=== PATIENT | female | born 1955 | race Caucasian/White ===

== ENCOUNTER 2016-06-15 18:47 | Inpatient (IN) | payer SELFPAY ==
[~2016-06-15] VITALS: Ht 177.8 cm; Wt 76.9 kg
--- NOTE | ~2016-06-15 | CON ---
PATIENT'S NAME: JOSE DANIEL DHALIWAL [facility] AGE: 60 Y [address] ROOM: [address] [address] LOCATION: [facility] ADMIT DATE: 06/15/2016 Consultation DISCHARGE DATE: FAMILY PHYSICIAN: PHYSICIAN, NO ATTENDING PHYSICIAN: ALAYNA HERNANDEZ DATE OF CONSULTATION: 06/16/2016 REFERRING PHYSICIAN: Pedro Willams MD CHIEF COMPLAINT: Left facial abscess, infected mandibular plate. HISTORY OF PRESENT ILLNESS: The patient is a 60-year-old female who presented to [facility] Emergency Room on 06/12/2016 with pain and swelling of left face. The patient had a history of mandible fracture for which she underwent open reduction and internal fixation per Dr. Shyam Salas several years prior. Apparently, right mandibular plates have been removed. Left mandibular plate remains. Upon evaluation, the patient was noted to have induration and swelling of her left mandible with an exposed mandibular reconstruction plate intraorally on the left. She was placed on oral Cleocin and Augmentin and instructed to follow up with ENT on Sunday06/13/2016. The patient failed to keep followup appointment and states she has been compliant with her antibiotic use. She presented to the emergency room on the late evening of 06/15/2016 with progressive enlargement of left-sided facial abscess with intraoral as well as external drainage. She was admitted to [facility] under hospitalist program. CBC was performed which revealed a normal white count at 7.6. The patient was admitted to [facility], placed on IV Unasyn, and ENT consultation was obtained. The patient states she has had progressive trismus noticed drainage over the course of the past 24 hours externally. She has significant pain and discomfort. She has no dysphagia. No odynophagia. No shortness of breath. No cough. She has had no recent radiographic evaluations. She has had no recent dental care. PAST MEDICAL HISTORY: History of alcohol and tobacco abuse. ALLERGIES: NONE. MEDICATIONS: See attached medication list. SOCIAL HISTORY: The patient is a 60-year-old female with history of smoking as well as alcohol use. She is . lives out of town. PATIENT'S NAME: JOSE DANIEL DHALIWAL [facility] AGE: 60 Y [address] ROOM: [id number] [place], [place] [address] LOCATION: [facility] ADMIT DATE: 06/15/2016 Consultation DISCHARGE DATE: FAMILY PHYSICIAN: EMELYN RECIO ATTENDING PHYSICIAN: ALAYNA HERNANDEZ A REVIEW OF SYSTEMS: Noted and documented in the chart. PHYSICAL EXAMINATION: GENERAL: She is a well-developed, well-nourished, 60-year-old female; very cooperative with exam; in moderate distress. HEENT: Eyes: EOMI, PERRL. Conjunctivae are clear. Ears: External canals normal. TMs are clear respectively. Nose: Nasal mucosa is nonedematous, nonerythematous. There is no rhinorrhea. Oropharynx and Oral Cavity: Tongue is midline. The patient has very poor dentition with multiple dental caries. She has swelling of her buccogingival sulcus on the left. She has an exposed plate extending up along the ramus of her mandible posteriorly on the left. There is no gross purulence. It is tender to palpation. Trismus for evaluation of the lingual aspect of her mandible, it is not well visualized. NECK: Trachea is midline. Thyroid has no palpable abnormality. She has no palpable cervical lymphadenopathy. FACE: The patient has a large left-sided facial abscess along the body of her mandible on the left. It is tender to palpation. There is fluctuance, associated erythema, and crusting with tissue breakdown. It is extremely tender to palpation. ASSESSMENT: 1. Left facial abscess. 2. Infected left mandibular reconstruction plate with possible osteomyelitis. RECOMMENDATIONS: Recommend CT scan of the face, Panorex, to evaluate position of plates and screws. Discussed this with the hospitalist ENT on-call in regard to the patient likely needs to be taken to the operating room for I and D and removal of all hardware. MD FERN MCKEON/eduardo /[id number] d: 06/16/16 1159 t: 06/19/16 0738, CONSULTATION REPORT
--- NOTE | ~2016-06-15 | CON ---
PATIENT'S NAME: JOSE DANIEL DHALIWAL [facility] AGE: 60 Y [address] ROOM: [facility] [place], [place] [address] LOCATION: GPED ADMIT DATE: 06/15/2016 Consultation DISCHARGE DATE: 06/19/2016 FAMILY PHYSICIAN: PHYSICIAN, NO ATTENDING PHYSICIAN: Cristo Owen REFERRING PHYSICIAN: Pedro Willams MD This is a young lady, who I treated 5 years ago for a fracture of the edentulous left mandible. Apparently, she came in last week with infection of the left side and the plates have bone removed. Panorex x-ray shows nonrestorable anterior mandibular teeth, otherwise is unremarkable. On clinical exam, she has defect of the left buccal musculature and skin secondary to her abscess. This has been packed open. ASSESSMENT: As above. PLAN: In talking to the patient, she states the teeth is completely asymptomatic and there is no evidence of acute infection clinically of these teeth. I think the present course of treatment is perfectly appropriate. I will speak further to the ENT physician handling her care. NICOLE NORIEGA MD/RAMÍREZ CARMONA/eduardo /[id number] d: t: 06/20/16 0920, CONSULTATION REPORT
--- NOTE | ~2016-06-15 | DS ---
PATIENT'S NAME: JOSE DANIEL DHALIWAL [facility] AGE: 60 Y [address] ROOM: [address] [place], [place] [address] LOCATION: GPED ADMIT DATE: 06/15/2016 Discharge Summary DISCHARGE DATE: 06/19/2016 FAMILY PHYSICIAN: PHYSICIAN, NO ATTENDING PHYSICIAN: Cristo Owen ATTENDING PHYSICIAN: Jaime Garcia M.D. PRIMARY CARE PHYSICIAN: None. FINAL DIAGNOSES: 1. Left facial abscess. 2. Infected left mandibular plate, status post removal. 3. Pain secondary to left facial abscess and infected left mandibular plate, status post removal. 4. History of alcohol abuse. CONSULTATIONS: 1. ENT, Dr. Borges. 2. Dr. Salas. PROCEDURES: I and D of left facial abscess with removal of plate. REASON FOR ADMISSION: This is a 60-year-old female who presented with left jaw pain. The patient presented with swelling and left jaw pain. She was found to have left facial abscess. She was then further admitted to [facility]. Please see Dr. Owen's admission H and P for further details. DIAGNOSTIC STUDIES: Serial CBCs were done that showed essentially normal white count, hemoglobin, hematocrit, and platelet levels. Serial BMP showed normal electrolytes and kidney function tests. Magnesium level 2.2. ESR 61. PT/INR was normal. CRP 4.91. Maxillofacial CT was done for facial abscess and showed a suspected large abscess adjacent to the lateral aspect of the angle of the mandible on the left side. This abutted the cortex in the posterior aspect of the surgical plate. Bony involvement could not be completely excluded, although no evidence of lytic lesion was noted. The patient was largely edentulous with lower incisors remaining. Increased lucency and positioning of the individual incisors noted. Crowns appeared to be eroded. Suspected reactive adenopathy involving the carotid chains and posterior triangles, worse on the left side was noted. Panorex x-ray was done for facial pain and showed surgical plate present involving the left anterior mandible. Surgical plate was intact. No acute fracture or dislocation noted. No bony lytic lesions were noted. The patient was largely edentulous. Crowns appeared to be eroded. X-ray of the mandible was done subsequently after drainage and showed surgical plate involving the left anterior mandible to be removed. No residual surgical hardware identified. Blood culture was PATIENT'S NAME: JOSE DANIEL DHALIWAL [facility] AGE: 60 Y [address] ROOM: [address] [place], [place] [address] LOCATION: GPED ADMIT DATE: 06/15/2016 Discharge Summary DISCHARGE DATE: 06/19/2016 FAMILY PHYSICIAN: PHYSICIAN, NO ATTENDING PHYSICIAN: Cristo Owen negative. Gram stain of the wound culture showed Streptococcus constellatus, pansensitive to all antibiotics tested; also showed Peptostreptococcus species, sensitive to antibiotics tested. HOSPITAL COURSE: This is a 60-year-old female who presented with left facial pain and facial swelling. She was found to have a left jaw abscess. She was initially placed on broad-spectrum antibiotic including Unasyn. ENT was consulted. The patient underwent imaging studies. The patient underwent an I and D of the left mandibular abscess along with removal of her plate. Postop course was uncomplicated. Her swelling had gone down. She was able to tolerate p.o. We also obtained maxillofacial CT surgeon, Dr. Salas's consultation, no further recommendations were received. The patient continued to do well, and then she was discharged and asked to follow up with Dr. Borges. DISCHARGE INSTRUCTIONS: The patient discharged on a full liquid diet. Followup with Dr. Borges in 1 week's time. Twice daily dressing changes advised. ENT to check a CBC, fax to Dr. Borges's office. The patient will get labs drawn at [facility]. DISCHARGE MEDICATIONS: 1. Peridex 15 mL p.o. 3 times daily, swish and spit. 2. Clindamycin 300 mg 4 times daily for 21 days. 3. Florastor 250 mg p.o. b.i.d. while on antibiotics. 4. [place] 10/325 mg 1 tablet p.o. q.4 hours p.r.n. pain. 5. Colace 100 mg p.o. b.i.d. p.r.n. constipation. This patient was managed by hospitalist and ENT teams during this admission. JAIME GARCIA MD MT/eduardo /[id number] d: 06/26/16 0551 t: 06/28/16 1512, DISCHARGE SUMMARY
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
--- NOTE | ~2016-06-15 | OR ---
PATIENT'S NAME: LATOSHA DOMINGUEZ [facility] AGE: 60 Y [address] ROOM: [facility] [place], [place] [address] LOCATION: GPED ADMIT DATE: 06/15/2016 OR/Procedure Report DISCHARGE DATE: FAMILY PHYSICIAN: PHYSICIAN, NO ATTENDING PHYSICIAN: ALAYNA HERNANDEZ SURGEON: Santiago Borges MD DATA ENTRY: DATE OF PROCEDURE: 06/16/2016 PREOPERATIVE DIAGNOSIS: Infected left mandible plates with left facial/neck abscess. HISTORY: Latosha Dominguez is a 60-year-old female, who underwent open reduction and internal fixation of mandible fracture with Dr. Salas many years ago. We did review the operative note and description of the plate and screws that were used at that time. The patient has had a 1-week history of increasing left facial and neck swelling and pain to suggest infection of the plate itself. She has very poor dentition otherwise. Dr. Salas was not available, therefore, Dr. Willams admitted her last night to [facility]. Dr. Willams left [facility], therefore, I accepted care for this patient. The CT scan was performed, which demonstrated the above. I did discuss with the patient the operative indications, potential risks and complications, and options, and she wished to proceed with surgery. DESCRIPTION OF PROCEDURE: The patient was brought to the operating room and placed in the supine position under general anesthesia without incident. The patient's eyes were protected during the operative course. Anesthesia was able to intubate her with a glide scope as she had fair amount of trismus. After the patient was intubated and the airway was secured, the left face was prepped and draped in normal sterile fashion. Area of the left facial abscess was starting to drain. This area was opened widely and a small incision was made anteriorly to expose the remainder of the abscess formation. This wound was copiously irrigated with sterile saline solution and cultures were taken from this side as well. Through an intraoral approach, an exposed plate was identified with one screw in place. This screw was removed and that plate and screw were sent on the back table. The patient was also noted to have another plate, 6-hole plate, deep with 6 screws, that were removed from the floor of the mouth on the left side as well. This area was copiously irrigated with sterile saline solution. I did tack the mucosa together, but allowing drainage from this site. [place] drain was placed in the neck and the wound was lightly closed over the Rian. The patient will remain on IV antibiotics. The patient's blood loss was 100 mL. She was extubated and taken to the recovery room in stable condition. PATIENT'S NAME: LATOSHA DOMINGUEZ [facility] AGE: 60 Y [address] ROOM: [place] [address] LOCATION: GPED ADMIT DATE: 06/15/2016 OR/Procedure Report DISCHARGE DATE: FAMILY PHYSICIAN: PHYSICIAN, EMELYN ATTENDING PHYSICIAN: ALAYNA HERNANDEZ MD DGO/modl /[id number] CC: Shyam Salas MD/DDS d: 06/17/16 0002 t: 06/21/16 1251, OPERATIVE SUMMARY
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
[2016-06-15 20:15] LABS: BASOPHIL % 0.5 %; EOSINOPHIL # 0.4 K/uL (0.0-0.5); EOSINOPHIL % 5.1 %; HEMATOCRIT 38.7 % (33.0-46.0); HEMOGLOBIN 12.9 g/dL (10.0-15.0); IMMATURE GRANULOCYTE % 0.1 %; LYMPHOCYTE # 1.6 K/uL (0.8-4.0); LYMPHOCYTE % 21.3 %; MCHC 33.3 gm/dL (32.0-36.5); MONOCYTE # 0.4 K/uL (0.0-1.0); MONOCYTE % 4.9 %; MPV 9.6 fl (9.4-12.4); NEUTROPHIL # (ANC) 5.2 K/uL (1.8-7.8); NEUTROPHIL % 68.1 %; NRBC % 0 /100WBC (0-0.00); PLATELET COUNT 277 K/uL (150-450); RBC 3.91 M/uL (3.50-5.50); RDW-CV 11.9 % (11.9-14.6); WBC 7.6 K/uL (4.0-11.0)
[2016-06-15] MEDS ORDERED: CLEOCIN150 MG PO (22:33)
[2016-06-15] MEDS ORDERED: HYDROCODON-ACE1 EAC4 PO (22:34)
[2016-06-15] MEDS ORDERED: AUGMENTIN 875-1 EACH PO (22:36)
[2016-06-15 22:59] LABS: ANION GAP 15.6 (10.0-19.0); BLOOD UREA NITROGEN 5 mg/dL (6-24); CALCIUM 8.6 mg/dL (8.5-10.5); CHLORIDE 103 mMol/L (96-110); CO2 24 mMol/L (22-32); CREATININE 0.6 mg/dL (0.5-1.1); ESTIMATED GFR (MDRD EQUATION) > 60; POTASSIUM 3.6 mMol/L (3.7-5.1); SODIUM 139 mMol/L (135-145)
[2016-06-16 05:33] LABS: BASOPHIL % 0.4 %; EOSINOPHIL # 0.2 K/uL (0.0-0.5); EOSINOPHIL % 2.9 %; HEMATOCRIT 35.9 % (33.0-46.0); HEMOGLOBIN 11.8 g/dL (10.0-15.0); IMMATURE GRANULOCYTE % 0.4 %; LYMPHOCYTE # 1.5 K/uL (0.8-4.0); LYMPHOCYTE % 18.8 %; MCH 32.8 pg (27.0-34.0); MCHC 32.9 gm/dL (32.0-36.5); MCV 99.7 fl (83.0-98.0); MONOCYTE # 0.6 K/uL (0.0-1.0); MONOCYTE % 6.9 %; MPV 9.6 fl (9.4-12.4); NEUTROPHIL # (ANC) 5.8 K/uL (1.8-7.8); NEUTROPHIL % 70.6 %; NRBC % 0 /100WBC (0-0.00); PLATELET COUNT 238 K/uL (150-450); RDW-CV 11.9 % (11.9-14.6); WBC 8.2 K/uL (4.0-11.0)
[2016-06-16 05:47] LABS: BLOOD UREA NITROGEN 6 mg/dL (6-24); CALCIUM 8.1 mg/dL (8.5-10.5); CHLORIDE 104 mMol/L (96-110); CO2 27 mMol/L (22-32); CREATININE 0.6 mg/dL (0.5-1.1); ESTIMATED GFR (MDRD EQUATION) > 60; SODIUM 140 mMol/L (135-145)
[2016-06-17 05:48] LABS: BASOPHIL % 0.3 %; EOSINOPHIL % 0.1 %; HEMATOCRIT 36.6 % (33.0-46.0); HEMOGLOBIN 11.9 g/dL (10.0-15.0); IMMATURE GRANULOCYTE % 0.3 %; LYMPHOCYTE # 1.1 K/uL (0.8-4.0); LYMPHOCYTE % 15.8 %; MCHC 32.5 gm/dL (32.0-36.5); MCV 101.4 fl (83.0-98.0); MONOCYTE # 0.2 K/uL (0.0-1.0); MONOCYTE % 3.1 %; MPV 9.8 fl (9.4-12.4); NEUTROPHIL # (ANC) 5.7 K/uL (1.8-7.8); NEUTROPHIL % 80.4 %; NRBC % 0 /100WBC (0-0.00); PLATELET COUNT 245 K/uL (150-450); RBC 3.61 M/uL (3.50-5.50); RDW-CV 11.7 % (11.9-14.6)
[2016-06-17 06:01] LABS: ANION GAP 13.1 (10.0-19.0); BLOOD UREA NITROGEN 6 mg/dL (6-24); CALCIUM 8.4 mg/dL (8.5-10.5); CHLORIDE 103 mMol/L (96-110); CO2 28 mMol/L (22-32); CREATININE 0.6 mg/dL (0.5-1.1); ESTIMATED GFR (MDRD EQUATION) > 60; MAGNESIUM 2.2 mg/dL (1.3-2.6); POTASSIUM 4.1 mMol/L (3.7-5.1); SODIUM 140 mMol/L (135-145)
[2016-06-19] MEDS ORDERED: PERIDEX15 ML (12:20)
[2016-06-19] MEDS ORDERED: COLACE100 MG PO (12:22)
[2016-06-19] MEDS ORDERED: FLORASTOR250 MG PO (12:24)
== END 2016-06-19 18:00 | disposition disaster alternative care site (69) | DRG 496 ==
LOC: GMED 18:47 → GMSU 21:27 → GPED 21:27
PROVIDERS: Emergency Medicine; Hospitalist; ADMIT Internal Medicine
PROC: 0W950ZZ Drainage of Lower Jaw, Open Approach (ICD-10-PCS; principal; 2016-06-16)
PROC: 0RPD04Z Removal of Internal Fixation Device from Left Temporomandibular Joint, Open Approach (ICD-10-PCS; 2016-06-16)
DX: T84.69XA Infection and inflammatory reaction due to internal fixation device of other site, initial encounter (principal); L02.01 Cutaneous abscess of face; F10.10 Alcohol abuse, uncomplicated; M27.2 Inflammatory conditions of jaws; Z87.891 Personal history of nicotine dependence
CPT/HCPCS: A9270; G0008; J0295; J1100; J2250; J2270; J2405; J3010; J7030; J7040; J7050; J7120